=== PATIENT | female | born 1995 | race Caucasian/White ===

== ENCOUNTER 2019-02-11 19:42 | Emergency (ER) | payer OTHER, SELFPAY ==
--- NOTE | 2019-02-11 | DI.CT.S_ITS ---
PROCEDURE: CT UE RT WO CON INDICATIONS: RIGHT WRIST FRACTURE TECHNIQUE: Noncontrast 1 mm axial sections acquired through the carpal bones, with coronal and sagittal reformats. COMPARISON: None. FINDINGS: Image quality: Excellent. Bones: Impacted, markedly comminuted distal radius fracture with extensive involvement of the articular surface. Associated ulnar styloid avulsion. No dislocation. No carpal bone fracture. Soft tissues: Soft tissue swelling. IMPRESSION: Impacted, extensively comminuted distal radius fracture with extensive involvement of the articular surface. Associated ulnar styloid avulsion. Dictated by: Robin Hoang M.D. on 02/11/2019 at 21:21 Approved by: Robin Hoang M.D. on 02/11/2019 at 21:22
[2019-02-11 19:48] VITALS: BP 110/59; PULSE 71; RESP 16; TEMP 37.7; O2SAT 96
--- NOTE | 2019-02-11 19:51 | DI.RAD.S_ITS ---
PROCEDURE: XR WRIST RT MIN 3V INDICATIONS: fall from ladder, rt wrist pain TECHNIQUE: 4 views of the wrist were acquired. COMPARISON: None. FINDINGS: Bones: Markedly comminuted distal radius fracture with impaction and extensive involvement of the articular surface. Associated ulnar styloid avulsion. No carpal bone fracture identified. Scaphoid view: Scaphoid intact. Soft tissues: No suspicious soft tissue calcifications. IMPRESSION: Markedly comminuted, impacted distal radius fracture with extensive involvement of the articular surface. Associated ulnar styloid avulsion. Dictated by: Robin Hoang M.D. on 02/11/2019 at 20:19 Approved by: Robin Hoang M.D. on 02/11/2019 at 20:20
--- NOTE | 2019-02-11 20:49 | ED.UPPEXIN ---
HPI - Extremity Injury (Upper) <INDU Vallejo - Last Filed: 02/11/19 22:14> General Chief Complaint: Extremity Injury, Upper Stated Complaint: RIGHT WRIST INJURY Time Seen by Provider: 02/11/19 19:48 Source: patient Mode of arrival: ambulatory Limitations: no limitations History of Present Illness HPI narrative: This is a 23-year-old female, nonsmoker, presents to ED with a friend with right radial aspect wrist pain. 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 The patient reports right arm is dominant hand and this is work related injury. She is from a [place] and she was evaluated by ENT and had Jose Maria's splint applied. She reports her sensation is intact except to her mid finger which is mildly decreased and is able to move her fingers. She also has superficial abrasion to L cheek and reports scratched from a ladder. Patient denies injuring any other areas including her right elbow, shoulder, head, or neck. Related Data Previous Rx's Medication Instructions Recorded hydrocodone-acetaminophen [[place]] 1 tab PO Q6H PRN #14 tab 02/11/19 Allergies Allergy/AdvReac Type Severity Reaction Status Date / Time No Known Drug Allergies Allergy Verified 02/11/19 19:50 Review of Systems <INDU Vallejo - Last Filed: 02/11/19 22:14> Review of Systems ROS Unobtainable: All systems reviewed & are unremarkable except as noted in HPI and below PFSH <INDU Vallejo - Last Filed: 02/11/19 22:14> Medical History No significant past medical history (Acute) No significant past surgical history (Acute) Social History (Updated 02/11/19 @ 20:59 by INDU Vallejo) Smoking Status: Never smoker Social History Smoking Status: Never smoker Exam <INDU Vallejo - Last Filed: 02/11/19 22:14> Narrative Exam Narrative: General appearance: well developed, well nourished, in no acute distress. Head: normocephalic, atraumatic, no scalp lesions, non-tender. Eye: pupil equal, round. EOMI. Nose: nares patent. Oral: mucosa moist. Neck/Thyroid: neck supple, full range of motion, no visible masses. Skin: Superificial abrasion to L cheeck. no suspicious rashes, lesions over visible areas. Warm and dry. Heart: no clubbing, no cyanosis, no edema. Lungs: Breathing even and unlabored. No stridor. No accessory muscles used. Chest: normal shape and expansion. Abdomen: non-obese, non-distended. Neurologic: alert and oriented. 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 Psych: good eye contact, normal affect. Initial Vital Signs Initial Vital Signs: Vital Signs Temperature 99.9 F H 02/11/19 19:48 Pulse Rate 71 02/11/19 19:48 Respiratory Rate 16 02/11/19 19:48 Blood Pressure 110/59 L 02/11/19 19:48 Pulse Oximetry 96 02/11/19 19:48 Extrem Right upper extremity: wrist Details: abnormal to inspection, tenderness (radial aspect of wrist), swelling Location: of the dorsal wrist (radial aspect), abnormal ROM Details: pain with active ROM during and pain with passive ROM during, deformity (radial aspect of wrist) and radial pulse present and hand Details: neuromotor exam normal, neurosensory exam normal Details: digital nerve sensory function normal and vascular exam Details: radial pulse present and normal capillary refill Left upper extremity: normal to inspection and full ROM Right lower extremity: normal to inspection and full ROM Left lower extremity: normal to inspection and full ROM <Won Crawford DO - Last Filed: 02/12/19 01:09> Initial Vital Signs Initial Vital Signs: Vital Signs Temperature 99.9 F H 02/11/19 19:48 Pulse Rate 71 02/11/19 19:48 Respiratory Rate 16 02/11/19 19:48 Blood Pressure 110/59 L 02/11/19 19:48 Pulse Oximetry 96 02/11/19 19:48 Procedures <INDU Vallejo - Last Filed: 02/11/19 22:14> Orthopedic Splinting/Casting Injury #1: Side: right Upper Extremity Injury Location: upper arm Upper Extremity Immobilizer: sling/shoulder immobilizer and sugar tong splint Post splinting neuro exam: intact Post splinting vascular exam: intact Placed by: Nursing Course <INDU Vallejo - Last Filed: 02/11/19 22:14> Orders Ordered: ED Orders 02/11/19 19:51 XR wrist RT min 3V Stat Discontinued Medications Hydrocodone Bitart/Acetaminophen ([place] 5/325) 1 tab PO NOW ONE Stop: 02/11/19 20:49 Last Admin: 02/11/19 20:59 Dose: 1 tab Hydrocodone Bitart/Acetaminophen (Vicodin Prepack) 1 bottle MISC SEEINSTR ONE Stop: 02/11/19 21:31 Last Admin: 02/11/19 21:35 Dose: 1 bottle Bacitracin (Bacitracin) 1 applic TOP NOW ONE Stop: 02/11/19 21:31 Last Admin: 02/11/19 21:35 Dose: 1 applic Vital Signs - 8 hr 02/11/19 19:48 02/11/19 22:14 Temperature 99.9 F H Pulse Rate 71 70 Respiratory Rate 16 14 Blood Pressure 110/59 L 108/74 Pulse Oximetry 96 <Won Crawford DO - Last Filed: 02/12/19 01:09> Orders Ordered: ED Orders 02/11/19 19:51 XR wrist RT min 3V Stat Discontinued Medications Hydrocodone Bitart/Acetaminophen ([place] 5/325) 1 tab PO NOW ONE Stop: 02/11/19 20:49 Last Admin: 02/11/19 20:59 Dose: 1 tab Hydrocodone Bitart/Acetaminophen (Vicodin Prepack) 1 bottle MISC SEEINSTR ONE Stop: 02/11/19 21:31 Last Admin: 02/11/19 21:35 Dose: 1 bottle Bacitracin (Bacitracin) 1 applic TOP NOW ONE Stop: 02/11/19 21:31 Last Admin: 02/11/19 21:35 Dose: 1 applic Vital Signs - 8 hr 02/11/19 19:48 02/11/19 22:14 Temperature 99.9 F H Pulse Rate 71 70 Respiratory Rate 16 14 Blood Pressure 110/59 L 108/74 Pulse Oximetry 96 MDM - Extremity Injury (Upper) <INDU Vallejo - Last Filed: 02/11/19 22:14> Differential Diagnosis Differential diagnosis: Likely sprain and strain of wrist, fracture of wrist and other (skin laceration/abrasion) Medical Records Attestation: I reviewed the patient's medical records. Imaging Data XR-Wrist R: Radiologist's impression: [address] [address] XRay Report Signed Patient: Keturah Coley LMR#: [id number] : 1995Acct:[id number] Age/Sex: 23 / FDate of Service: 02/11/19 Loc: ED Accession Number: [id number] Procedure: XR wrist RT min 3V Ordering Provider: Gomez Edge PROCEDURE: XR WRIST RT MIN 3V INDICATIONS: fall from ladder, rt wrist pain TECHNIQUE: 4 views of the wrist were acquired. COMPARISON: None. FINDINGS: Bones: Markedly comminuted distal radius fracture with impaction and extensive involvement of the articular surface. Associated ulnar styloid avulsion. No carpal bone fracture identified. Scaphoid view: Scaphoid intact. Soft tissues: No suspicious soft tissue calcifications. IMPRESSION: Markedly comminuted, impacted distal radius fracture with extensive involvement of the articular surface. Associated ulnar styloid avulsion. Dictated by: Robin Hoang M.D. on 02/11/2019 at 20:19 Approved by: Robin Hoang M.D. on 02/11/2019 at 20:20 CT-upper ext R : Radiologist's impression: [address] [address] [address] Scan Report Signed Patient: Keturah Coley LMR#: [id number] : 1995Acct:[id number] Age/Sex: 23 / FDate of Service: 02/11/19 Loc: ED Accession Number: [id number] Procedure: CT UE RT wo con Ordering Provider: Gomez Edge PROCEDURE: CT UE RT WO CON INDICATIONS: RIGHT WRIST FRACTURE TECHNIQUE: Noncontrast 1 mm axial sections acquired through the carpal bones, with coronal and sagittal reformats. COMPARISON: None. FINDINGS: Image quality: Excellent. Bones: Impacted, markedly comminuted distal radius fracture with extensive involvement of the articular surface. Associated ulnar styloid avulsion. No dislocation. No carpal bone fracture. Soft tissues: Soft tissue swelling. IMPRESSION: Impacted, extensively comminuted distal radius fracture with extensive involvement of the articular surface. Associated ulnar styloid avulsion. Dictated by: Robin Hoang M.D. on 02/11/2019 at 21:21 Approved by: Robin Hoang M.D. on 02/11/2019 at 21:22 [facility] Narrative Medical decision making narrative: The patient's x-ray and CT scan on right wrist show impacted, extensively comminuted distal radius fracture with extensive involvement of the articular surface and ulna styloid avulsion. Patient's physical exam showed limited active range of motion due to pain. Patient was able to move her fingers, sensation was intact. Right hand distal Radial pulse was intact. Patient reports some tingling on her fingers. Consulted Dr. Junie Arreola over the phone call to discuss the findings and additional imaging test of CT scan was ordered and obtained as Dr. Arreola requested. Patient was medicated with [place] and was able to tolerate sugar-tong splinting procedure and provided sling. Patient was advised to follow up with [facility] orthopedist this week by calling them. Discussed narcotic pain medication precautions and RICE therapy with patient. Patient reports as long as patient not moving affected hand pain is not too bad. Return precautions were discussed with the patient and no further questions were expressed at this time. L &I paperwork and work release form filled and provided to the patient. Discharge Plan Departure Patient Disposition: Home Clinical Impression: Closed fracture distal radius and ulna Qualifiers: Encounter type: initial encounter Laterality: right Qualified Code(s): S52.501A - Unspecified fracture of the lower end of right radius, initial encounter for closed fracture Discharge Date/Time: 02/11/19 22:14 Interventions: ED Discharge Assessment Last Done: 02/11/19 22:14 Instructions: DI for Wrist Fracture Activity Restrictions/Additional Instructions: You have been diagnosed with [closed impacted comminuted distal radius fracture with ulna styloid avulsion per x-ray and CT scan test. We have placed done sugar-tong splint and provided you with a sling for comfort.]. What to do: *Take your medications as directed. [place] will cause drowsiness so please do not drive, drink alcohol, operate heavy equipment. Also pain medication can cause constipation and take additional fluid intake and high-fiber diet. He can also take [id number] stool softener. Use the splint all time. Please use ?RICE? therapy such as Rest, Ice, Compression/Spliint/Acewra, and Elevation above the chest level. Ice the area for next 24-48 hrs after the initial injury. Please try to avoid getting swelling to the affected site since this may cause increasing pain. You could use OTC Tylenol and or Ibuprofen as needed for pain. Please monitor for increasing pain, swelling, tingling/numbness, unable to move affected/below the injury site, cool limbs or any acute concerns. *Follow up with your primary care provider/orthopedist in 2-3 days, call for an appointment. Let them know you were seen in the ED and that we asked you to be seen in follow up. Prescriptions: New hydrocodone-acetaminophen [[place]] 5-325 mg tablet 1 tab PO Q6H PRN (Reason: pain) Qty: 14 RF: 0 Referrals: [facility] [Outside] [facility] [Outside] <Won Crawford DO - Last Filed: 02/12/19 01:09> [facility] ED Attending Praneeth Attestation: I was immediately available in the department for consultation. Documentation has been reviewed. I agree with assessment and plan.
--- NOTE | 2019-02-11 20:52 | ED_ITS ---
HPI - Extremity Injury (Upper) <INDU Vallejo - Last Filed: 02/11/19 22:14> General Chief Complaint: Extremity Injury, Upper Stated Complaint: RIGHT WRIST INJURY Time Seen by Provider: 02/11/19 19:48 Source: patient Mode of arrival: ambulatory Limitations: no limitations History of Present Illness HPI narrative: This is a 23-year-old female, nonsmoker, presents to ED with a friend with right radial aspect wrist pain. 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 The patient reports right arm is dominant hand and this is work related injury. She is from a [place] and she was evaluated by ENT and had Jose Maria's splint applied. She reports her sensation is intact except to her mid finger which is mildly decreased and is able to move her fingers. She also has superficial abrasion to L cheek and reports scratched from a ladder. Patient denies injuring any other areas including her right elbow, shoulder, head, or neck. Related Data Previous Rx's Medication Instructions Recorded hydrocodone-acetaminophen [[place]] 1 tab PO Q6H PRN #14 tab 02/11/19 Allergies Allergy/AdvReac Type Severity Reaction Status Date / Time No Known Drug Allergies Allergy Verified 02/11/19 19:50 Review of Systems <INDU Vallejo - Last Filed: 02/11/19 22:14> Review of Systems ROS Unobtainable: All systems reviewed & are unremarkable except as noted in HPI and below PFSH <INDU Vallejo - Last Filed: 02/11/19 22:14> Medical History No significant past medical history (Acute) No significant past surgical history (Acute) Social History (Updated 02/11/19 @ 20:59 by INDU Vallejo) Smoking Status: Never smoker Social History Smoking Status: Never smoker Exam <INDU Vallejo - Last Filed: 02/11/19 22:14> Narrative Exam Narrative: General appearance: well developed, well nourished, in no acute distress. Head: normocephalic, atraumatic, no scalp lesions, non-tender. Eye: pupil equal, round. EOMI. Nose: nares patent. Oral: mucosa moist. Neck/Thyroid: neck supple, full range of motion, no visible masses. Skin: Superificial abrasion to L cheeck. no suspicious rashes, lesions over visible areas. Warm and dry. Heart: no clubbing, no cyanosis, no edema. Lungs: Breathing even and unlabored. No stridor. No accessory muscles used. Chest: normal shape and expansion. Abdomen: non-obese, non-distended. Neurologic: alert and oriented. 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 Psych: good eye contact, normal affect. Initial Vital Signs Initial Vital Signs: Vital Signs Temperature 99.9 F H 02/11/19 19:48 Pulse Rate 71 02/11/19 19:48 Respiratory Rate 16 02/11/19 19:48 Blood Pressure 110/59 L 02/11/19 19:48 Pulse Oximetry 96 02/11/19 19:48 Extrem Right upper extremity: wrist Details: abnormal to inspection, tenderness (radial aspect of wrist), swelling Location: of the dorsal wrist (radial aspect), abnormal ROM Details: pain with active ROM during and pain with passive ROM during, deformity (radial aspect of wrist) and radial pulse present and hand Details: neuromotor exam normal, neurosensory exam normal Details: digital nerve sensory function normal and vascular exam Details: radial pulse present and normal capillary refill Left upper extremity: normal to inspection and full ROM Right lower extremity: normal to inspection and full ROM Left lower extremity: normal to inspection and full ROM <Won Crawford DO - Last Filed: 02/12/19 01:09> Initial Vital Signs Initial Vital Signs: Vital Signs Temperature 99.9 F H 02/11/19 19:48 Pulse Rate 71 02/11/19 19:48 Respiratory Rate 16 02/11/19 19:48 Blood Pressure 110/59 L 02/11/19 19:48 Pulse Oximetry 96 02/11/19 19:48 Procedures <INDU Vallejo - Last Filed: 02/11/19 22:14> Orthopedic Splinting/Casting Injury #1: Side: right Upper Extremity Injury Location: upper arm Upper Extremity Immobilizer: sling/shoulder immobilizer and sugar tong splint Post splinting neuro exam: intact Post splinting vascular exam: intact Placed by: Nursing Course <INDU Vallejo - Last Filed: 02/11/19 22:14> Orders Ordered: ED Orders 02/11/19 19:51 XR wrist RT min 3V Stat Discontinued Medications Hydrocodone Bitart/Acetaminophen ([place] 5/325) 1 tab PO NOW ONE Stop: 02/11/19 20:49 Last Admin: 02/11/19 20:59 Dose: 1 tab Hydrocodone Bitart/Acetaminophen (Vicodin Prepack) 1 bottle MISC SEEINSTR ONE Stop: 02/11/19 21:31 Last Admin: 02/11/19 21:35 Dose: 1 bottle Bacitracin (Bacitracin) 1 applic TOP NOW ONE Stop: 02/11/19 21:31 Last Admin: 02/11/19 21:35 Dose: 1 applic Vital Signs - 8 hr 02/11/19 19:48 02/11/19 22:14 Temperature 99.9 F H Pulse Rate 71 70 Respiratory Rate 16 14 Blood Pressure 110/59 L 108/74 Pulse Oximetry 96 <Won Crawford DO - Last Filed: 02/12/19 01:09> Orders Ordered: ED Orders 02/11/19 19:51 XR wrist RT min 3V Stat Discontinued Medications Hydrocodone Bitart/Acetaminophen ([place] 5/325) 1 tab PO NOW ONE Stop: 02/11/19 20:49 Last Admin: 02/11/19 20:59 Dose: 1 tab Hydrocodone Bitart/Acetaminophen (Vicodin Prepack) 1 bottle MISC SEEINSTR ONE Stop: 02/11/19 21:31 Last Admin: 02/11/19 21:35 Dose: 1 bottle Bacitracin (Bacitracin) 1 applic TOP NOW ONE Stop: 02/11/19 21:31 Last Admin: 02/11/19 21:35 Dose: 1 applic Vital Signs - 8 hr 02/11/19 19:48 02/11/19 22:14 Temperature 99.9 F H Pulse Rate 71 70 Respiratory Rate 16 14 Blood Pressure 110/59 L 108/74 Pulse Oximetry 96 MDM - Extremity Injury (Upper) <INDU Vallejo - Last Filed: 02/11/19 22:14> Differential Diagnosis Differential diagnosis: Likely sprain and strain of wrist, fracture of wrist and other (skin laceration/abrasion) Medical Records Attestation: I reviewed the patient's medical records. Imaging Data XR-Wrist R: Radiologist's impression: [address] [address] XRay Report Signed Patient: Keturah Coley LMR#: [id number] : 1995Acct:[id number] Age/Sex: 23 / FDate of Service: 02/11/19 Loc: ED Accession Number: [id number] Procedure: XR wrist RT min 3V Ordering Provider: Gomez Edge PROCEDURE: XR WRIST RT MIN 3V INDICATIONS: fall from ladder, rt wrist pain TECHNIQUE: 4 views of the wrist were acquired. COMPARISON: None. FINDINGS: Bones: Markedly comminuted distal radius fracture with impaction and extensive involvement of the articular surface. Associated ulnar styloid avulsion. No carpal bone fracture identified. Scaphoid view: Scaphoid intact. Soft tissues: No suspicious soft tissue calcifications. IMPRESSION: Markedly comminuted, impacted distal radius fracture with extensive involvement of the articular surface. Associated ulnar styloid avulsion. Dictated by: Robin Hoang M.D. on 02/11/2019 at 20:19 Approved by: Robin Hoang M.D. on 02/11/2019 at 20:20 CT-upper ext R : Radiologist's impression: [address] [address] [address] Scan Report Signed Patient: Keturah Coley LMR#: [id number] : 1995Acct:[id number] Age/Sex: 23 / FDate of Service: 02/11/19 Loc: ED Accession Number: [id number] Procedure: CT UE RT wo con Ordering Provider: Gomez Edge PROCEDURE: CT UE RT WO CON INDICATIONS: RIGHT WRIST FRACTURE TECHNIQUE: Noncontrast 1 mm axial sections acquired through the carpal bones, with coronal and sagittal reformats. COMPARISON: None. FINDINGS: Image quality: Excellent. Bones: Impacted, markedly comminuted distal radius fracture with extensive involvement of the articular surface. Associated ulnar styloid avulsion. No dislocation. No carpal bone fracture. Soft tissues: Soft tissue swelling. IMPRESSION: Impacted, extensively comminuted distal radius fracture with extensive involvement of the articular surface. Associated ulnar styloid avulsion. Dictated by: Robin Hoang M.D. on 02/11/2019 at 21:21 Approved by: Robin Hoang M.D. on 02/11/2019 at 21:22 [facility] Narrative Medical decision making narrative: The patient's x-ray and CT scan on right wrist show impacted, extensively comminuted distal radius fracture with extensive involvement of the articular surface and ulna styloid avulsion. Patient's physical exam showed limited active range of motion due to pain. Patient was able to move her fingers, sensation was intact. Right hand distal Radial pulse was intact. Patient reports some tingling on her fingers. Consulted Dr. Junie Arreola over the phone call to discuss the findings and additional imaging test of CT scan was ordered and obtained as Dr. Arreola requested. Patient was medicated with [place] and was able to tolerate sugar-tong splinting procedure and provided sling. Patient was advised to follow up with [facility] orthopedist this week by calling them. Discussed narcotic pain medication precautions and RICE therapy with patient. Patient reports as long as patient not moving affected hand pain is not too bad. Return precautions were discussed with the patient and no further questions were expressed at this time. L &I paperwork and work release form filled and provided to the patient. Discharge Plan Departure Patient Disposition: Home Clinical Impression: Closed fracture distal radius and ulna Qualifiers: Encounter type: initial encounter Laterality: right Qualified Code(s): S52.501A - Unspecified fracture of the lower end of right radius, initial encounter for closed fracture Discharge Date/Time: 02/11/19 22:14 Interventions: ED Discharge Assessment Last Done: 02/11/19 22:14 Instructions: DI for Wrist Fracture Activity Restrictions/Additional Instructions: You have been diagnosed with [closed impacted comminuted distal radius fracture with ulna styloid avulsion per x-ray and CT scan test. We have placed done sugar-tong splint and provided you with a sling for comfort.]. What to do: *Take your medications as directed. [place] will cause drowsiness so please do not drive, drink alcohol, operate heavy equipment. Also pain medication can cause constipation and take additional fluid intake and high-fiber diet. He can also take [id number] stool softener. Use the splint all time. Please use ?RICE? therapy such as Rest, Ice, Compression/Spliint/Acewra, and Elevation above the chest level. Ice the area for next 24-48 hrs after the initial injury. Please try to avoid getting swelling to the affected site since this may cause increasing pain. You could use OTC Tylenol and or Ibuprofen as needed for pain. Please monitor for increasing pain, swelling, tingling/numbness, unable to move affected/below the injury site, cool limbs or any acute concerns. *Follow up with your primary care provider/orthopedist in 2-3 days, call for an appointment. Let them know you were seen in the ED and that we asked you to be seen in follow up. Prescriptions: New hydrocodone-acetaminophen [[place]] 5-325 mg tablet 1 tab PO Q6H PRN (Reason: pain) Qty: 14 RF: 0 Referrals: [facility] [Outside] [facility] [Outside] <Won Crawford DO - Last Filed: 02/12/19 01:09> [facility] ED Attending Praneeth Attestation: I was immediately available in the department for consultation. Documentation has been reviewed. I agree with assessment and plan.
[2019-02-11] MEDS: HYDROCODONE/ACET 5/325 TABLET 1 TAB PO (20:59)
[2019-02-11] MEDS: BACITRACIN OINT 0.9 GM PCKT 1 APPLIC TOP (21:35)
[2019-02-11] MEDS: HYDROCODONE/ACET 5/325 PREPACK 1 BOTTLE MISC (21:35)
[2019-02-11 22:14] VITALS: BP 108/74; PULSE 70; RESP 14
== END 2019-02-11 22:14 | disposition home or self-care (01) ==
PROVIDERS: Emergency Provider Nurse Practitioner Family
DX: S52.501A Unspecified fracture of the lower end of right radius, initial encounter for closed fracture (principal); Y99.0 Civilian activity done for income or pay
CPT/HCPCS: 73110; 73200; 99282; 99283